=== PATIENT | male | born 1985 | race African-American/Black ===

== ENCOUNTER 2017-10-03 21:21 | Emergency (ER) | payer OTHER ==
[2017-10-03 21:27] VITALS: BMI 30.1
--- NOTE | 2017-10-03 23:04 | DR.GENAD ---
HPI - PCP Primary Care Physician: [email or web address] - HPI Comment HPI Comment: AT WORK, TRAY FELL ON PATIENTS FOOT. BRUISING ON TOP OF RT FOOT WITH SWELLING. - Complaint/Symptoms Chief Complaint Doctors Comments: PAIN AND SWELLING RT FOOT AND TOES DUE TO INJURY. Chief Complaint:: PT C/O RT FOOT INJURY FROM A TRAY FALLING ON HIS FOOT AT WORK - Nurses notes reviewed Nurses Notes Review: Yes - Source History Provided: Patient - Mode of Arrival Mode of Arrival: Ambulatory - Timing Onset of Chief Complaint: 10/03/17 Came on: Suddenly - Duration Duration: Constant Duration: Hours - Severity Severity: Moderate PMH - PMH Past Medical History: No Past Surgical History: No - Family History History of Family Medical Conditions: No - Social History Type of Tobacco Use: Cigarettes Alcohol Use: Occasionally Do you use any recreational Drugs:: No Lives With: Family Lives Where: Home - infectious screening In the last 2 months have you had wt loss of >10#?: NO Have you had fever, night sweats or hemotysis?: No Have you traveled outside the country in the last 6 months?: No Isolation: Standard ROS - Review of Systems Constitutional: No Symptoms Reported Eyes: No Symptoms Reported ENTM: No Symptoms Reported Respiratoy: No Symptoms Reported Cardiovascular: No Symptoms Reported Gastrointestinal/Abdominal: No Symptoms Reported Genitourinary: No Symptoms Reported Neurological: No Symptoms Reported Musculoskeletal: Right, Foot (BRUISING AND SWELLING FOOT.TOES PAINFUL.) Integumentary: Bruises Hematologic/Lymphatic: No Symptoms Reported Endocrine: No Symptoms Reported All Other Systems: Reviewed and Negative PE - Vital Signs Vitals: Temperature 100 F Pulse Rate 80 Respiratory Rate 18 Blood Pressure [Left Arm] 112/74 Blood Pressure 132/79 O2 Sat by Pulse Oximetry 100 - General Limitations: No Limitations General Appearance: Alert - Head Head Exam: Normal Inspection - Eyes Eye exam: Normal Appearance - ENT ENT Exam: Normal External Ear Exam External Ear Exam: Normal External Inspection Mouth Exam: Normal Inspection Throat Exam: Normal Inspection - Neck Neck Exam: Trachea Midline - Chest Chest Inspection: Symmetric Chest Wall Rise - Respiratory Respiratory Exam: Normal Lung Sounds Bilat Respiratory Exam: Bilateral Clear to Auscultation - Cardiovascular Cardiovascular Exam: Regular Rate, Normal Rhythm, Normal Heart Sounds - Abdominal Exam Abdominal Exam: Normal Inspection - Extremities Extremities Exam: Tenderness (tebderness, anterior rt foot and toes with swelling.) - Back Back Exam: Normal Inspection - Neurologic Neurological Exam: Alert, Oriented X3 - Psychiatric Psychiatric Exam: Normal Affect, Normal Mood - Skin Skin Exam: Normal Color MDM - Differential Diagnosis Differential Diagnosis: FRACTURE, CONTUSION, SPRAIN, RT FOOT. Course - Treatment Treatment: SEE ORDERS. - Education/Counseling Education/Counseling: Family, Education Educated On: Diagnosis, Needs for Follow Up ROR - Labs Reviewed Laboratory: Non-DOT Drug Screen Collected 10/03/17 22:40 - XRAY XRAY Interpreted by: Radiologist XRAY Findings: REPORT DISCUSS WITH PATIENT. - Diagnosis Discharge Problem: Contusion of right foot Qualifiers: Encounter type: initial encounter Qualified Code(s): S90.31XA - Contusion of right foot, initial encounter Sprain of right foot Qualifiers: Encounter type: initial encounter Qualified Code(s): S93.601A - Unspecified sprain of right foot, initial encounter - Discharge Plan Disposition: HOME, SELF-CARE Condition: Stable Prescriptions: Ibuprofen [MOTRIN TAB 600 MG *] 600 mg PO TID PRN #30 tab PRN Reason: Pain/Inflammation - Follow ups/Referrals Follow ups/Referrals: BYRON RODRIGUEZ [STAFF PHYSICIAN] - 2 days [facility],None [Primary Care Provider] - 2 days - Instructions Instructions: Foot Contusion, [id number], Foot Sprain Additional Instructions: RETURN TO ED IF WORSE.
[2017-10-03 23:49] VITALS: BP 112/74
--- NOTE | 2017-10-03 23:53 | RAD ---
Three views of the right foot. Indication: Right foot pain after work injury Findings: There is mild hallux valgus, metatarsus previous varus deformity. No acute fracture disloca tion or localizing soft tissue swelling. Lisfranc joint alignment is maintained. Impression: 1.No acute radiographic abnormality within the right foot. 2. 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 Reported By:
== END 2017-10-03 23:49 | disposition home or self-care (01) ==
LOC: ER 21:37
DX: S90.31XA Contusion of right foot, initial encounter (principal); S93.601A Unspecified sprain of right foot, initial encounter; X58.XXXA Exposure to other specified factors, initial encounter; Y92.69 Other specified industrial and construction area as the place of occurrence of the external cause
CPT/HCPCS: 73630; 99000; 99282